=== PATIENT | male | born 1960 | race Caucasian/White ===

== ENCOUNTER 2016-11-09 17:26 | Emergency (ER) | payer BC ==
--- NOTE | 2016-11-09 17:48 | ERNOTE ---
Abdominal HPI - Narrative Date of Service: 11/09/16 - General Chief Complaint: Abdominal Pain Time Seen by Provider: 11/09/16 17:47 Source: patient - Immun/Allergies/Home Medications Immunizatons: IMMUNIZATION HX History of Influenza Vaccine No Allergies/Adverse Reactions: Allergies No Known Allergies Allergy (Verified 11/09/16 17:39) Home Medications: HOME MEDICATIONS Lisinopril [Zestril] 10 mg PO DAILY #30 tab 08/24/15 [Last Taken Unknown] - History of Present Illness Narrative: pt with very minimal PMH of knee surgery, noted mild pain to his LLQ yest and it has become worse today. He has been nauseated and vomited once. pt sts that his L testicle is sore but denies any bulging or mass. Pt denies fever or chills but had soaked his clothing. He had an episode where his whole body became numb. This has resolved Date (Duration): 11/08/16 Timing: constant, getting worse Quality: severe, aching, cramping Activities at Onset: none Modifying Factors - (Improves): Present: lying down Modifying Factors - (Worsens): Present: movement. Absent: analgesics, vomiting Associated Symptoms: Present: diaphoresis Review of Systems - Review of Systems Constitutional: Present: diaphoresis, malaise EYE: Present: no symptoms reported ENT: Present: no symptoms reported Respiratory: Present: no symptoms reported Cardiology: Present: no symptoms reported Gastrointestinal/Abdominal: Present: nausea, vomiting, abdominal pain. Absent: diarrhea Genitourinary: Present: no symptoms reported Musculoskeletal: Present: no symptoms reported Skin: Present: no symptoms reported Neurological: Present: no symptoms reported Endocrine: Present: no symptoms reported Hematologic/Lymphatic: Present: no symptoms reported Psych: Present: no symptoms reported - Patient's Past Medical History Patient History - Medical: No pertinent hx Patient History - Cancer: No Hx of Cancer Patient History - Surgical Procedures: No surgical history - Social History Living Situations: home Alcohol Use: none Drug Use: none Physical Exam - Physical Exam General Appearance: Present: alert, moderate distress, obese Eye Exam: Normal inspection: bilateral Ears, Nose, Throat: Present: normal ENT inspection Neck: Present: normal inspection Respiratory: Present: no respiratory distress Cardiovascular/Chest: Present: regular rate, rhythm Gastrointestinal/Abdominal: Present: tenderness - LLQ, L suprapubic abdominal pain Back Exam: Present: normal inspection Extremity Exam: Present: normal inspection Neurological Exam: Present: alert, oriented Skin Exam: Present: normal color Lymphatic Exam: Present: no adenopathy ED Progress - Results and Orders Patient's Lab Results:: I have reviewed the patient's lab results. Results and Orders: WBC 20 K with 90 % neutrophils - Vital Signs Patient's Vital Signs:: I have reviewed the patient's vital signs. Vital Signs: Vital Signs 11/09/16 17:33 Temperature 36.3 C L Pulse Rate 90 Respiratory 18 Rate Blood Pressure 117/72 O2 Sat by Pulse 99 Oximetry - Progress/Reassessment Chief Complaint: Abdominal Pain Progress:: Unchanged - Pt BP unable to tolerate pain medication at this time. This is in spite of antibiotics and fluids Progress Note-Subjective: 11/09/16 19:35 bp 90s sys, ordered a fluid bolus and then antibiotics - Transfer of Care Physician Sign Out: Lea Jang Brief History: pt has LLQ abdominal pain and likely severe diverticulitis. Has remained hypotensive for most of his stay, currently in the 90s after 1 liter of fluid and antibiotics. Unable to have an IV contrast CT scan sec to poor renal function, hyperkalemia. Receiving Physician: Kyra Cee Pending Results: CT/MRI results Expected Disposition: Admit Departure - Departure Clinical Impression: Diverticulitis large intestine Qualifiers: Diverticulitis bleeding: without bleeding Diverticulitis complication: with abscess Qualified Code(s): K57.20 - Diverticulitis of large intestine with perforation and abscess without bleeding Hypotension Qualifiers: Hypotension type: unspecified hypotension type Qualified Code(s): I95.9 - Hypotension, unspecified Disposition: [facility] Referrals: Jet Roque DO [Primary Care Provider] -
[2016-11-09 18:00] LABS: Hematocrit 43.4 % (42.0-52.0); Hemoglobin 14.6 gm/dL (13.5-18.0); Mean Cell Volume 94.3 fl (78-100); Mean Corpuscular Hemoglobin 31.7 pg (27-31); Mean Corpuscular Hgb Conc 33.6 g/dl (32-36); Mean Platelet Volume 10.6 fl (6.0-9.5); Neutrophil # 18.1 K/mm3 (1.3-6.0); Neutrophil % 90.4 % (42-75.0); Platelet Count 160 K/mm3 (150-450); Red Cell Distribution Width 13.3 % (11.5-14.0)
[2016-11-09 18:15] LABS: Albumin * 3.6 gm/dl (3.4-5.0); BUN/Creatinine Ratio 10.8 (9.0-21.6); Bilirubin, Total 0.5 mg/dL (0.0-1.1); Ca. Corrected For Albumin 9.4 mg/dL (8.4-10.2); Calcium * 9.4 mg/dL (7.9-10.9); Carbon Dioxide 25.7 mmol/L (24-32.6); Potassium 4.7 mmol/L (3.4-4.6); Total Protein 7.6 gm/dL (6.2-8.2)
[2016-11-09 18:21] LABS: Urine Bilirubin 1 mg/dl (NEGATIVE); Urine Ketone Negative (NEGATIVE); Urine Nitrite Negative (NEGATIVE); Urine Protein >=300 mg/dL (NEGATIVE); Urine Specific Gravity >=1.030 SP.GR. (1.005-1.030); Urine Urobilinogen Normal (NORMAL); Urine pH 5.5 pH (5.0-7.0)
[2016-11-09] MEDS ORDERED: ONDANSETRON HCL/PF 2 MG/ML VIAL IV ONE ×2 (18:24→21:21)
[2016-11-09] MEDS ORDERED: MORPHINE SULFATE 10 MG/ML SYRG IV ONE (18:24)
[2016-11-09] MEDS ORDERED: MORPHINE SULFATE 10 MG/ML SYRG ONE (18:32)
[2016-11-09] MEDS ORDERED: ONDANSETRON HCL/PF 2 MG/ML VIAL ONE ×2 (18:32→21:18)
[2016-11-09] MEDS ORDERED: NORMAL SALINE 1,000 ML IV ONE ×2 (18:41→21:58)
[2016-11-09 18:43] LABS: Urine Appearance Turbid; Urine Blood 10 /ul (NEGATIVE); Urine Color Dark Yellow
[2016-11-09 18:44] LABS: Urine Bacteria 1+; Urine Mucus Few - 1+; Urine Other Crystal Few - 1+ /hpf; Urine RBC 0-5 /hpf (0-5); Urine WBC None Seen /hpf (0-5)
[2016-11-09 18:48] LABS: Urine Coarse Granular Cast >25 /LPF; Urine Fine Granular Cast >25 /LPF; Urine Hyaline Cast >25 /LPF
[2016-11-09] MEDS ORDERED: metroNIDAZOLE/SODIUM CHLORIDE 500 MG/100 ML BAG IV SCH (19:30)
[2016-11-09] MEDS ORDERED: LEVOFLOXACIN/D5W 500 MG/100 ML BAG IV SCH (19:30)
[2016-11-09 20:08] LABS: Anion Gap 17.3 mmol/L (6.8-13.8); BUN/Creatinine Ratio 11.5 (9.0-21.6); Calcium * 9.1 mg/dL (7.9-10.9); Carbon Dioxide 23.3 mmol/L (24-32.6); Estimated Creat Clear 59.7; Potassium 5.6 mmol/L (3.4-4.6)
[2016-11-09] MEDS ORDERED: DIATRIZOATE MEGLU/DIATRIZO SOD 30 ML BTL ONE (20:16)
[2016-11-09] MEDS ORDERED: DIATRIZOATE MEGLU/DIATRIZO SOD 30 ML BTL PO ONE (20:39)
[2016-11-09] MEDS ORDERED: MORPHINE SULFATE 2 MG/ML DISP.SYRIN IV ONE (20:59)
[2016-11-09] MEDS ORDERED: NORMAL SALINE 1,000 ML IV PRN (21:02)
[2016-11-09] MEDS: NORMAL SALINE 1,000 ML IV ONE ×2 (21:09→21:24)
[2016-11-09 22:08] VITALS: BP 106/63
--- NOTE | 2016-11-09 22:44 | CONS ---
[facility] - General Date of Service: 11/09/16 Source: patient, family, RN/MD Exam Limitations: no limitations - History of Present Illness Initial Comments: Ask to see this 56 y/o white male who presented to ER with complaints of LLQ abdominal pain. He has a known history of diverticulosis. The patient states that the pain started early this afternoon. The states that it started yesterday and that he though that it might get better over time. In the course of his w/u he was given oral contrast which was promptly brought back up with emesis. Following that the patient had the onset of severe generalized abdominal pain with profound hypotension and a SBP of 40. He is receiving his second and third liter of crystalloid and has a dopamine drip at 20 mikes. He has responded to the initial boluses and pressor and BP has normalized. He is still tachycardic at 146. His WBC is 20K. He has a kolb but is not producing urine yet. Timing/Duration: 24 hours, getting worse Severity: severe Allergies/Adverse Reactions: Allergies No Known Allergies Allergy (Verified 11/09/16 17:39) - Patient's Past Medical History Patient History - Medical: No pertinent hx Patient History - Cancer: No Hx of Cancer Patient History - Surgical Procedures: No surgical history - Social History Living Situations: home Alcohol Use: none Drug Use: none Medications - Medications Current Medications: Current Medications Metronidazole (Flagyl) 500 mg in 100 mls @ 100 mls/hr IV Q8H [facility] Stop: 12/09/16 19:31 Last Admin: 11/09/16 20:02 Dose: 100 mls/hr Levofloxacin/Dextrose (Levaquin) 500 mg in 100 mls @ 100 mls/hr IV Q24H [facility] Stop: 12/09/16 19:31 Last Admin: 11/09/16 21:14 Dose: 100 mls/hr Dopamine HCl/Dextrose (Dopamine 400 Mg/D5w 250 Ml) 400 mg in 250 mls @ 23.984 mls/hr IV TITR PRN; Protocol; 5 MCG/KG/MIN PRN Reason: HYPOTENSION Stop: 12/09/16 21:02 Last Titration: 11/09/16 22:04 Dose: 12.5 mcg/kg/min, 59.955 mls/hr Sodium Chloride (Sodium Chloride 0.9%) 1,000 mls @ 999 mls/hr IV .Q1H1M PRN PRN Reason: HYDRATION Stop: 12/09/16 21:03 Last Admin: 11/09/16 21:59 Dose: 999 mls/hr Review of Systems - Review of Systems Misc: All systems neg except as marked Physical Examination - Exam Vital Signs: Vital Signs - Last Taken Temp 36.1 C L 11/09/16 22:07 Pulse 143 H 11/09/16 22:07 Resp 19 11/09/16 22:07 BP 106/63 11/09/16 22:07 Pulse Ox 100 11/09/16 22:07 O2 Oxygen Delivery Method Room Air Constitutional: Present: Alert, Oriented x3, Cooperative, Moderate distress, Other - Lying perfectly still on gurney. Neck: Present: non-tender, supple, trachea midline. Absent: lymphadenopathy (R) , lymphadenopathy (L) Respiratory: Present: lungs clear, normal breath sounds, no respiratory distress Cardiovascular/Chest: Present: tachycardia, other - Loud hemic flow murmur. Abdomen: Present: other - Abdominal exam per ER physician. Reported as LLQ tenderness, guarding and rebound c/w peritonitis. Skin Exam: Present: cool/dry Neurologic: Present: no motor/sensory deficits - Results and Findings: Lab/Microbiology results last 24 hrs: Abnormal/Pending Laboratory Last 24 HRS 11/09/16 11/09/16 11/09/16 19:55 17:55 17:55 WBC 20.0 H RBC 4.60 L MCH 31.7 H MPV 10.6 H Immature Gran % (Auto) 0.80 H Immature Gran # (Auto) 0.16 H Neutrophils % 90.4 H Lymphocytes % 6.3 L Neutrophils # 18.1 H Lymphocytes # 1.3 L Potassium 5.6 H 4.7 H Carbon Dioxide 23.3 L Anion Gap 17.3 H 16.0 H Creatinine 1.83 H 1.76 H Est GFR (Non-Af Amer) 41 L 43 L Random Glucose 189 H 196 H Urine Protein Urine Blood Urine Bilirubin Prot Sulfosalicylic Acd Calcium Oxalate Crystal Other Crystals Urine Bacteria Hyaline Casts Fine Granular Casts Coarse Granular Casts Urine Mucus 11/09/16 17:55 WBC RBC MCH MPV Immature Gran % (Auto) Immature Gran # (Auto) Neutrophils % Lymphocytes % Neutrophils # Lymphocytes # Potassium Carbon Dioxide Anion Gap Creatinine Est GFR (Non-Af Amer) Random Glucose Urine Protein >=300 H Urine Blood 10 H Urine Bilirubin 1 H Prot Sulfosalicylic Acd 4+ H Calcium Oxalate Crystal Few - 1+ H Other Crystals Few - 1+ H Urine Bacteria 1+ H Hyaline Casts >25 H Fine Granular Casts >25 H Coarse Granular Casts >25 H Urine Mucus Few - 1+ H - Assessments/Findings (1) Diverticulitis large intestine Diagnosis(s): Probable perforated diverticulitis with profound sepsis requiring aggressive fluid resuscitation and high levels of pressors. UOP has not returned as yet. Probable Acute Kidney Injury/ATN. Already tossing casts and spilling protein. Creatinine 1.83. Hyperglycemia. Stress/Sepsis related. Lactic Anion-gap acidosis. High risk for multiple organ failure. Recommend transfer to a higher level of care. [facility] chosen due to high risk MOF. It is snowing and air transfer is grounded. Will transfer via ground. Case d/w with Dr. Cee/ER Physician. She has obtained transfer of care from triage physician at [facility]. Condition: Serious Prognosis: Guarded Problem: Acute Qualifiers: Diverticulitis bleeding: without bleeding Diverticulitis complication: with abscess Qualified Code(s): K57.20 - Diverticulitis of large intestine with perforation and abscess without bleeding (2) Hypotension Problem: Acute Qualifiers: Hypotension type: unspecified hypotension type Qualified Code(s): I95.9 - Hypotension, unspecified
== END 2016-11-09 22:23 | disposition short-term general hospital (02) ==
LOC: ER 17:26
DX: K57.20 Diverticulitis of large intestine with perforation and abscess without bleeding (principal); I95.9 Hypotension, unspecified; A41.9 Sepsis, unspecified organism

== ENCOUNTER 2017-05-29 13:20 | Emergency (ER) | payer BC ==
[2017-05-29 13:33] VITALS: BP 138/100
--- NOTE | 2017-05-29 14:03 | ERNOTE ---
Back Pain ER HPI Presenting Symptoms: other Time Seen by Provider: 05/29/17 13:43 Source: patient Exam Limitations: no limitations Immunizations: IMMUNIZATION HX History of Influenza Vaccine No Allergies/Adverse Reactions: Allergies No Known Allergies Allergy (Verified 05/29/17 13:32) Home Medications: HOME MEDICATIONS Cyclobenzaprine HCl [Flexeril] 10 mg PO TID PRN #30 tab 05/29/17 [Last Taken Unknown] Gabapentin [Neurontin] 300 mg PO BID 05/29/17 [Last Taken Unknown] Metoprolol Succinate 25 mg PO BID 05/29/17 [Last Taken Unknown] Nabumetone [Relafen] 500 mg PO BID 05/29/17 [Last Taken Unknown] oxyCODONE HCL/ACETAMINOPHEN [Percocet 5 MG/325 MG] 1 - 2 tab PO Q4H PRN #30 tab 05/29/17 [Last Taken Unknown] Narrative: Patient started with right knee and hip pain about 2-3 weeks ago, denies any injury, initially ibuprofen helped. He saw Dr Quintanilla days ago, had multiple xrays done, was given prescription for nabumetone and physical therapy. Over the last few days the pain has gotten worse and has been more in his buttock radiating down his right thigh, his right foot feels different, no weakness, no new injury. He was not able to get hold of anyone at Dr López office so he decided to come to the ER. Timing: Reports: getting worse Quality/Severity: Reports: moderate, sharpness Location of pain: Reports: radiating to rt thigh/leg Recent Injury?: Reports: no Associated Symptoms: Denies: fever/chills, constipation/incontinence, nausea/ vomiting, difficulty walking, numbess/weakness in legs Prior Treament: Reports: recently seen, similar symptoms before - on the left side, relieved with epidural injection Review of Systems - Review of Systems Constitutional: Absent: recent illness, fever, chills Respiratory: Absent: shortness of breath Cardiology: Absent: chest pain Gastrointestinal/Abdominal: Absent: nausea, vomiting, abdominal pain Genitourinary: Present: no symptoms reported Musculoskeletal: Present: See HPI Skin: Absent: rash Neurological: Present: numbness. Absent: See HPI, weakness - Patient's Past Medical History Patient History - Medical: No pertinent hx Patient History - Cardiac/Respiratory: Hypertension, Hyperlipidemia, Other Patient History - Cancer: No Hx of Cancer Patient History - Surgical Procedures: Angioplasty - aortic Patient History - Other: None - Social History Living Situations: home Psych History: No pertinent hx Alcohol Use: none Drug Use: none - Immunizations History of Influenza Vaccine: No Physical Exam - Physical Exam General Appearance: Present: wd/wn, alert, no apparent distress Respiratory: Present: no respiratory distress, normal breath sounds, no accessory muscle use, lungs clear Cardiovascular/Chest: Present: regular rate, rhythm, no murmur Back Exam: Present: normal inspection, no vertebral tenderness, muscle spasm - right lumbar paravertebral, other - pain on right leg straight leg raise Extremity Exam: Present: no edema Neurological Exam: Present: alert, oriented, normal mood/affect, no motor/ sensory deficits DTR: N=norm/NB=norm/brisk/A=abs/DD=dull/dimin/HC=hyperactive: Knee (R): Dull/ Diminished, Knee (L): Dull/Diminished, Ankle (R): Dull/Diminished, Ankle (L): Dull/Diminished Skin Exam: Present: normal color, warm/dry ED Progress - Vital Signs Patient's Vital Signs:: I have reviewed the patient's vital signs. Vital Signs: Vital Signs 05/29/17 13:28 Temperature 36.8 C Pulse Rate 93 Respiratory 16 Rate Blood Pressure 138/100 O2 Sat by Pulse 97 Oximetry - Progress/Reassessment Chief Complaint: Lower Extremity Pain/ Injury Departure Clinical Impression: Sciatica of right side - Departure Disposition: Home self-care Condition: Good Instructions: Sciatica, [id number] Additional Instructions: take either nabumetone or ibuprofen but not both at the same time and the other pain medication as needed Referrals: Jet Roque DO [Primary Care Provider] - 06/06/17 1:30 pm Prescriptions: Cyclobenzaprine HCl [Flexeril] 10 mg PO TID PRN #30 tab PRN Reason: MUSCLE SPASMS oxyCODONE HCL/ACETAMINOPHEN [Percocet 5 MG/325 MG] 1 - 2 tab PO Q4H PRN #30 tab PRN Reason: Pain
== END 2017-05-29 14:35 | disposition home or self-care (01) ==
LOC: ER 13:20
DX: M54.31 Sciatica, right side (principal)